=== PATIENT | female | born 1935 | race Caucasian/White ===

== ENCOUNTER 2016-07-27 22:51 | Inpatient (IN) | payer MEDICARE, OTHER ==
[~2016-07-27] VITALS: Ht 160 cm; Wt 64.1 kg
--- NOTE | ~2016-07-27 | CON ---
PATIENT'S NAME: V[facility]E [facility]AR[facility] AGE: 80 Y [address] ROOM: [id number] [place], [place] [address] LOCATION: [facility] ADMIT DATE: 07/27/2016 Consultation DISCHARGE DATE: FAMILY PHYSICIAN: Kate Bruce MD ATTENDING PHYSICIAN: Earnest Avelar Changed to consult per provider 07/29/16 AOREFERRING PHYSICIAN: ANURAG VARELA MD CHIEF COMPLAINT: Left shoulder pain status post mechanical fall. HISTORY OF PRESENT ILLNESS: This is an 80-year-old female who says that she was doing some yard work by pulling weeds and when she finished, she stood up and while walking back home, she stepped over the wire fence and tripped and fell into the door. She denies hitting her head and she denies any loss of consciousness. The fall was purely mechanical. She denies any chest pain, shortness of breath, palpitation, nausea, vomiting, or diaphoresis prior to the fall. She also denies any lightheadedness. She denies any loss of consciousness after the fall. She does complain of severe left shoulder pain after the fall. The patient was later brought to the outside facility for evaluation and imaging test showed that the patient had a left humerus fracture and later transferred here for orthopedic care. At baseline, she is a functional individual. She has dementia but she does answer my question appropriately and is alert and oriented x3 on my interaction. Her METS score is more than 4. She denies any chest pain or shortness of breath at rest. She denies any chest pain on exertion. With prolonged exertion, the patient does complain of dyspnea on exertion. She has never had heart attack before and she has never been told she had an atrial fibrillation or heart failure in the past. The patient also never had a heart surgery in the past either. The patient was a former cigarette smoker for a few years, half pack per day, but she quit more than 15 years ago. She does use oxygen at home at night 1-2 L during sleep. REVIEW OF SYSTEMS: As mentioned in history of present illness. All other systems were reviewed and they were negative except those mentioned in the history of present illness. PAST MEDICAL HISTORY: 1. Dementia. 2. Reported history of CHF. 3. Reported history of a COPD. 4. Gastroesophageal reflux disease. PATIENT'S NAME: [facility] AGE: 80 Y [address] ROOM: [place] [address] LOCATION: [facility] ADMIT DATE: 07/27/2016 Consultation DISCHARGE DATE: FAMILY PHYSICIAN: Kate Bruce MD ATTENDING PHYSICIAN: Earnest Avelar 5. Hypertension. 6. Chronic kidney disease, stage not identified from the medical records that came with the patient. 7. Reported history of sleep apnea. ALLERGIES: ASPIRIN WHICH CAUSES A GI UPSET. HOME MEDICATIONS: It will be reconciled in the morning. The patient does not take any blood thinner at home. SOCIAL HISTORY: The patient was a former cigarette smoker about half pack per day for few years. She quit more than 15 years ago. She denies any alcohol or any illegal drug use. FAMILY HISTORY: Both parents from old age. She denies any coronary artery disease in the family and in either parents. PAST SURGICAL HISTORY: Status post hysterectomy. PHYSICAL EXAMINATION: VITAL SIGNS: Temperature 98.2, heart rate 90, respirations 14, blood pressure 150/80, saturation 99% on room air. GENERAL APPEARANCE: Alert and oriented x3, in no acute distress. HEENT: Pupils equally round and reactive to light. Extraocular muscles intact. Anicteric sclerae. Nasal turbinates are normal bilaterally. Moist oral mucosa. NECK: No JVD. CARDIOVASCULAR: Regular rate and rhythm. Could not appreciate any murmur, rubs, or gallops. Normal S1, S2. RESPIRATORY: Clear to auscultation bilaterally. No rales. No rhonchi. No crackles. No wheezing. ABDOMEN: Soft, nontender, nondistended, normal bowel sounds, no hepatosplenomegaly. Bowel sounds are present. EXTREMITIES: No edema in upper or lower extremities. MUSCULOSKELETAL: Left upper extremity not examined due to the fracture. Otherwise, unremarkable in all other 3 limbs. NEUROLOGICAL: Sensation intact in all 4 extremities. Muscle strength not examined in the left upper extremity due to the fracture. Otherwise, unremarkable. Radial pulses are +2, bilaterally present. PATIENT'S NAME: [facility] AGE: 80 Y [address] ROOM: [place] [address] LOCATION: [facility] ADMIT DATE: 07/27/2016 Consultation DISCHARGE DATE: FAMILY PHYSICIAN: Kate Bruce MD ATTENDING PHYSICIAN: Earnest Avelar LABORATORY DATA: CPK 180, proBNP 344, troponin less than 0.04. White blood cell 10.2, hemoglobin 11.7, hematocrit 38.2, platelet 218. Glucose 118, BUN 18, creatinine 1.2. Sodium 138, potassium 4.8, chloride 107, CO2 20, calcium 8.3. Total protein 7.4, albumin 3.3, AST 27, ALT 25, alkaline phosphatase 74, total bilirubin 0.3, magnesium 2.6. GFR 43, anion gap 15.8. INR 0.95, PTT 23. CK- MB 2.5, prealbumin 24. IMAGING STUDIES: Chest x-ray on admission, the official reading is pending and I had it read by the on-call [facility]. The preliminary report was read as, there is a line overlying the left hemithorax, which likely represent overlying soft tissue artifact rather than a pneumothorax. Recommend a repeat 2-view exam in the Radiology Department. Age indeterminate, displaced proximal left humerus fracture. Mild left lung base atelectasis or consolidation. Small hiatal hernia. EKG on admission on July 28, 2016, at 1:44 a.m. shows sinus tachycardia with heart rate at 101 beats per minute. AZ of 176 milliseconds, QRS of 64 milliseconds, QTc of 381 milliseconds. No acute ischemic changes. X-ray from the outside facility showed left shoulder glenohumeral dislocation with comminuted fracture of the humeral head. ASSESSMENT AND PLAN: 1. Regarding her left shoulder glenohumeral dislocation with comminuted fracture of the humeral head status post mechanical fall: Defer to Orthopedic Surgery care. 2. Regarding her preoperative medical evaluation for noncardiac surgery: Orthopedic surgery is considered as an intermediate risk surgery. From the guideline of the preoperative medical evaluation for noncardiac surgery, the patient does not require any additional testing at the moment to prevent her from going for surgery. However, the patient will require a repeat chest x-ray in the morning again with 2-view to rule out a left side pneumothorax, which probably was likely a soft tissue artifact. Therefore, the patient will be cleared for surgery only if the repeat chest x-ray is normal without pneumothorax. Her METS score is more than 4. She denies any chest pain or shortness of breath on exertion or at rest. She does get some mild exertional dyspnea with prolonged exertion. Currently, the patient does not look volume overloaded. Her blood work looks unremarkable. Cardiac enzymes were negative the first set. Pain control with narcotics p.r.n. N.p.o., IV fluids for gentle hydration. Further plan will depend on clinical course and also on the repeat chest x-ray in the morning. 3. Regarding her obstructive sleep apnea: Given that the patient does PATIENT'S NAME: V[facility]E [facility] AGE: 80 Y [address] ROOM: [id number] [place], [place] [address] LOCATION: [facility] ADMIT DATE: 07/27/2016 Consultation DISCHARGE DATE: FAMILY PHYSICIAN: Kate Bruce MD ATTENDING PHYSICIAN: Earnest Avelar require oxygen at night 2 L for her sleep apnea, after the surgery, there is a risk that the patient may be difficult to extubated and may require a high level of oxygen support. The patient is aware of this condition. Currently, she is saturating well at 96% on room air. 4. Regarding her history of gastroesophageal reflux disease: We will start her on omeprazole 40 mg p.o. daily. 5. Regarding her chronic kidney disease stage III: She is on IV fluids for gentle hydration. GFR is 43. Creatinine is 1.2. This does not prevent her from having the Orthopedic Surgery. 6. Reported history of congestive heart failure: Currently, the patient is euvolemic. ProBNP is normal. Chest x-ray does not show any effusion. There is no murmur on examination. There is no indication to order an echo at the moment. 7. Regarding her hypertension: Currently, she is getting IV labetalol and IV hydralazine p.r.n. Once the medication list is reconciled in the morning, then it can be addressed. 8. Regarding her reported history of chronic obstructive pulmonary disease: Continue 2 L oxygen at night. She is now wheezing. Stable. 9. Regarding her deep vein thrombosis prophylaxis: She is on compression devices. Time spent in care on the day of admission: 45 minutes in total. More than half of the time was spent in counseling, including going over the plan of care and also addressing all the questions and concerns the patient had, and also going over the plan of care with the nurse. The remainder of the total time was spent on chart review and also physical examination and interview. Further plan will depend on clinical course and on the chest x-ray this morning. MD SON PATTERSON/kody /[id number] Changed to consult per provider 07/29/16 AO d: 07/28/16721 t: 08/05/16711, CONSULTATION REPORT
--- NOTE | ~2016-07-27 | DS ---
PATIENT'S NAME: VICENTE MCCARTHY [facility] AGE: 80 Y [address] ROOM: [address] [place], [place] [address] LOCATION: [facility] ADMIT DATE: 07/27/2016 Discharge Summary DISCHARGE DATE: 08/04/2016 FAMILY PHYSICIAN: Kate Bruce MD ATTENDING PHYSICIAN: Earnest Avelar PRIMARY DIAGNOSES: 1. Left humeral fracture. 2. Acute hypoxic respiratory failure. 3. Escherichia coli urinary tract infection. 4. Chronic conditions include essential hypertension and Alzheimer dementia. PRIMARY PROCEDURES: Done for the patient include open reduction and internal fixation and left shoulder reverse arthroplasty by Dr. Avelar. LABORATORY DATA: WBC on admission was 10.2, was stable throughout the hospital stay, prior to discharge was 9.5; H and H on admission 11.7/38.2, prior to discharge hemoglobin was 9.3, was stable throughout the hospital stay. On admission, creatinine was 1.2, prior to discharge was 1.0; potassium on admission was 4.8, prior to discharge was 3.7; bicarb on admission was 20, prior to discharge was 26; BUN was 19 on discharge. Magnesium was also stable throughout the hospital stay. UA: Leukocytes 100, nitrite negative, wbc's 5- 10, bacteria many. Microbiology: Urine culture was E. coli, greater than 100,000. RADIOLOGY: Chest x-ray: Linear edge opacity at left lateral lung, likely skin fold or external artifact rather than pneumothorax. Follow up with 2- view study to confirm left proximal humerus fracture. Chest x-ray, no pneumothorax. HOSPITAL COURSE: For history of present illness, please take a look at the H and P, which was done by the by Dr. Morocho. The patient was admitted to Neurotrauma Unit, had a consult with Dr. Avelar. The patient was medically optimized for surgery; however, surgery was not possible up until July 31. Prior to then, there was difficulty in achieving pain control for the patient given her advanced age and use of narcotic. However, eventually the patient's pain was under control with the addition of Nucynta and sparingly use of narcotics. The procedure was well tolerated by the patient without any intraoperative or postop complications. Postop, the patient's pain was still relatively controlled. The patient was restarted on her regular medications and we did have some difficulty trying to wean the patient off the oxygen. So, she was discharged on oxygen to the swing bed. The patient was very reluctant to do much physical therapy, as she did require a lot of encouragement for her to do any physical therapy at all. Regarding DVT prophylaxis, Dr. Avelar reports that if the patient is ambulatory, then PATIENT'S NAME: VICENTE MCCARTHY [facility] AGE: 80 Y [address] ROOM: [address] [address] LOCATION: [facility] ADMIT DATE: 07/27/2016 Discharge Summary DISCHARGE DATE: 08/04/2016 FAMILY PHYSICIAN: Kate Bruce MD ATTENDING PHYSICIAN: Earnest Avelar really she does not need DVT prophylaxis; however, given the fact that the patient is very reluctant to participate in any physical therapy, we decided to discharge the patient on Lovenox p.r.n. On the day of discharge, vital signs were stable and the patient was discharged to the swing bed. The patient had an asymptomatic urinary tract infection; however, given the significance of a urine culture, we decided to put the patient on Augmentin even though the initial drug of choice was Levaquin; however, because of the interaction with some of her medications, we decided to go for Augmentin. DISCHARGE INSTRUCTIONS: Full weightbearing, dependent on exercise for now. The patient is to have an x-ray at [facility] on August 18, 2016, and also to follow with Dr. Avelar on August 18, 2016. Sling. MEDICATIONS ON DISCHARGE: 1. Mapap 500 mg p.o. daily. 2. Klonopin 0.5 mg q.h.s. at bedtime. 3. Colace 100 mg p.o. twice daily. 4. Augmentin 875 mg p.o. twice daily with meals for a total of 5 days. The patient has 2 more days to complete. 5. Folic acid 0.5 mg p.o. daily. 6. Prilosec 20 mg p.o. daily. 7. Phenazopyridine 25 mg p.o. daily. 8. Trazodone 150 mg p.o. q.h.s. 9. Amitriptyline 75 mg p.o. q.h.s. 10. Nucynta, new medication, 50 mg p.o. 3 times daily. 11. Senokot 1 tablet p.o. twice daily p.r.n. 12. Tylenol Extra Strength 500 to 1 g p.o. q.6 hours p.r.n. 13. Colace 10 mg rectally p.r.n. 14. Milk of magnesia 30 mL p.o. daily p.r.n., new medication. 15. Allyson-Colace tablet 1 tablet p.o. twice daily. 16. MiraLAX 17 g p.o. daily p.r.n. new medication. 17. Aricept 100 mg p.o. daily. 18. Namenda 10 mg p.o. twice daily. 19. Lovenox 40 mg subcu daily p.r.n. if the patient not ambulatory. 20. Dudley 5/325 1-2 tablets every 4 hours p.o. p.r.n. Discharge time spent on this patient is approximately 35 minutes, which included coordinating care with our manager primary care team and also with the accepting physician. MCKINLEY JAIMES MD PATIENT'S NAME: VICENTE MCCARTHY [facility] AGE: 80 Y [address] ROOM: [place] [address] LOCATION: [facility] ADMIT DATE: 07/27/2016 Discharge Summary DISCHARGE DATE: 08/04/2016 FAMILY PHYSICIAN: Kate Bruce MD ATTENDING PHYSICIAN: Earnest Avelar/kody /[id number] d: 08/04/16 0117 t: 08/10/16 1413, DISCHARGE SUMMARY
--- NOTE | ~2016-07-27 | DS ---
PATIENT'S NAME: VICENTE WHITLOCK [facility] AGE: 80 Y [address] ROOM: [address] [address] LOCATION: [facility] ADMIT DATE: 07/27/2016 Discharge Summary DISCHARGE DATE: 08/01/2016 FAMILY PHYSICIAN: Kate Bruce MD ATTENDING PHYSICIAN: Earnest Garcia HISTORY OF PRESENT ILLNESS: Ms. Whitlock had a fall at home. Left shoulder, head splitting, comminuted proximal humeral fracture, not fixable, is also dislocated. Initial concerns whether, with her dementia, she had the insight to benefit from a reverse shoulder arthroplasty. Not a candidate for open reduction and internal fixation. The options were either reverse shoulder or live with it the way it was. She was observed. Decided together with her and her that she had the insight and motivation to benefit from the procedure. She was taken to the operating room on July 31. Left shoulder reverse arthroplasty. No problems. Postop course unremarkable. Ready to discharge to home on the . Regular diet, activity. Avoid falls. She has been taught by the therapist how to do a home pendulum exercise program, which she will do each hour while awake. Change of Mepilex dressing each week. DISCHARGE MEDICINES: 1. Nucynta for pain, transition to Tylenol when possible. 2. Klonopin. 3. Docusate. 4. Aricept. 5. Namenda. 6. Folic acid. 7. Prilosec. 8. Phenazopyridine. 9. Desyrel. 10. Elavil. 11. Allyson-Colace. 12. Ultram. 13. Cranberry. To see her family physician for any medical problems. She will follow up with Dr. Garcia on August 18, 2016, at 1:45 p.m. X-rays have been ordered at the [facility] at 12:45. DIAGNOSIS: Left shoulder fracture. X-rays AP and axillary views, left shoulder. EARNEST GARCIA MD PATIENT'S NAME: VICENTE WHITLOCK [facility] AGE: 80 Y [address] ROOM: [id number] [place], [place] [address] LOCATION: [facility] ADMIT DATE: 07/27/2016 Discharge Summary DISCHARGE DATE: 08/01/2016 FAMILY PHYSICIAN: Kate Bruce MD ATTENDING PHYSICIAN: Earnest Garcia DPM/ivonl /[id number] d: 08/01/16 1858 t: 08/03/16 2152, DISCHARGE SUMMARY
--- NOTE | ~2016-07-27 | OR ---
PATIENT'S NAME: VICENTE WHITLOCK [facility] AGE: 80 Y [address] ROOM: [facility] [place], [place] [address] LOCATION: [facility] ADMIT DATE: 07/27/2016 OR/Procedure Report DISCHARGE DATE: FAMILY PHYSICIAN: Kate Bruce MD ATTENDING PHYSICIAN: Earnest Garcia SURGEON: Earnest Garcia MD MAIL PROCESSING CLERK: DATE OF PROCEDURE: 07/31/2016 DIAGNOSES: Left shoulder head splitting comminuted fracture. PROCEDURE: Left shoulder reverse arthroplasty. ANESTHESIA: General. INDICATION: Ms Whitlock fell at home with a left shoulder head splitting, dislocating comminuted left shoulder fracture, not fixable, medically optimized for surgery. First not considered a candidate for the repair the exercise program with restrictions after arthroplasty, but with repeat evaluation appeared to be have good insight and motivated for result, understands a good result would be not a pain-free shoulder, but her shoulders as likely stiff and sore. Hopefully, we will be able to comb her hair and feed herself. There would be a good result. The alternative given to her was to live with it the way it is. Opted for surgical intervention. Risks, benefits, and alternatives have been discussed. DESCRIPTION OF PROCEDURE: Ms Whitlock was taken to the operating room, 2 g Kefzol given intravenously for prophylaxis. General anesthetic via endotracheal tube. Placed in a captain's chair. Left shoulder and upper extremity prepared with DuraPrep and draped sterilely. A 10 cm deltopectoral exposure was performed. The deltoid was carefully retracted. Retractor placed behind the glenoid. Comminuted proximal humeral and head splitting humeral head fractures identified, rotator cuff was split apart, but there were some bone fragments that were still attached to the supraspinatus and subscapularis. The proximal fragments were carefully removed leaving the bone attached to the rotator cuff. #5 Ethibond sutures were placed through the supraspinatus and subscapularis through the bone and used for retraction. The biceps tendon was released off the top of the glenoid, it was tagged with a 5- 0 Ethibond. The capsule was released from around the glenoid using the Tornier reverse arthroplasty system, guide pin was driven with the guide position on the most inferior edge of the glenoid in a slight inferior tilt. This perforated the anterior cortex at about 30 mm. Serially, it was reamed. Down to cancellous bone. We sized to a 25-mm threaded base plate. This was screwed in place. The four locking screws placed all with good purchase. The humerus was inspected, it was judged for a probable length. Reamer was fully PATIENT'S NAME: VICENTE WHTILOCK [facility] AGE: 80 Y [address] ROOM: [place] [address] LOCATION: [facility] ADMIT DATE: 07/27/2016 OR/Procedure Report DISCHARGE DATE: FAMILY PHYSICIAN: Kate Bruce MD ATTENDING PHYSICIAN: Earnest Garcia advanced, but the 11 mm trial seemed to sit too proud, the 9 mm was a better fit and appeared to be the appropriate length. The canal was prepared, the cement restrictor was placed. It was packed. Cement with Ballico cement with antibiotic was prepared in Tornier 9 mm x 13 mm humeral stem. Cemented in place with approximately 20 degrees of retroversion. This was also the fracture stem and the reservoirs were packed with bone graft from the resected humeral head for hopefully healing of the tuberosities. The 36 mm spherical head was placed on the glenoid, the screw was fully tightened, tapped in place, and then tightened again. Excellent fixation in good position. A trial 36 mm standard insert on the humeral stem was perfect length. There was no shock. There was no impingement. Permanent implant was placed. The wound was irrigated. The tuberosities were repaired with the #5 Ethibond to the bone graft to the area of the stem. Two additional #5 Ethibond had been placed through a drill hole prior to cementing the humeral stem. These were used to make sure the hold the tuberosities down. Biceps tendon was tenodesed with a 5-0 Ethibond. The deltopectoral interval was closed with #1 Vicryl. Subcutaneous tissues closed with 0 Vicryl. Skin was closed with estephanie. Procedure was done without complication. Estimated blood loss from the procedure was 50 mL. Results perfect position of the reverse shoulder arthroplasty and will begin immediate pendulum exercises. EARNEST GARCIA MD DPM/modl /[id number] d: 08/01/16 1156 t: 08/03/16 2149, OPERATIVE SUMMARY
--- NOTE | ~2016-07-27 | HP ---
PATIENT'S NAME: [facility] AGE: 80 Y [address] ROOM: [place] [address] LOCATION: [facility] ADMIT DATE: 07/27/2016 History & Physical DISCHARGE DATE: FAMILY PHYSICIAN: PHYSICIAN, UNKNOWN ATTENDING PHYSICIAN: ANURAG VARELA DATE OF SERVICE: 07/27/2016 EMERGENCY ROOM EVALUATION TIME: 11:30 p.m. HISTORY OF PRESENT ILLNESS: Ms. Whitlock is an 80-year-old white female with dementia, unable to give a detailed history but she does live with her in [facility]. She fell today and injured her left shoulder. Denies any new neck pain or back pain or weakness or numbness, just pain in the left shoulder. She was not having any left shoulder pain prior to this incident. Difficult to sort out how much activity she truly is able to do prior to this, but at least a limited ambulator. MEDICATIONS: See list. ALLERGIES: NONE KNOWN. PAST MEDICAL HISTORY: Osteoporosis, dementia, hypertension, and GERD. REVIEW OF SYSTEMS: As above. FAMILY MEDICAL HISTORY: Says her parents of old age. PERSONAL AND SOCIAL HISTORY: Does not smoke. Does not drink alcohol. Lives with her in [place]. PHYSICAL EXAMINATION: GENERAL: White female, elderly, confused, minimal distress. HEENT: She hears and sees. NECK: Moves fully but Spurling's is positive with some discomfort to the left shoulder. PATIENT'S NAME: [facility] AGE: 80 Y [address] ROOM: [place] [address] LOCATION: [facility] ADMIT DATE: 07/27/2016 History & Physical DISCHARGE DATE: FAMILY PHYSICIAN: PHYSICIAN, UNKNOWN ATTENDING PHYSICIAN: ANURAG VARELA THORACIC SPINE: Nontender. LUMBAR SPINE: Nontender. LEFT SHOULDER: Skin is intact. Not able to lift her arm. Painful motion. HEART: Her pulse rate is regular. LUNGS: No difficulty in taking deep breath. ABDOMEN: Soft and nontender. Distal pulses present. INTEGUMENT: Intact. IMAGING DATA: X-rays taken today show a left shoulder comminuted proximal fractures including a head splitting fracture and dislocation without significant osteoarthritis. ASSESSMENT AND PLAN: The left shoulder head splitting lesion not fixable with open reduction and internal fixation. With her age, consideration could be given to a reverse shoulder replacement as a treatment option. Would only benefit from the reverse shoulder replacement if she was motivated and had insight into doing an exercise program to receive some benefit. I explained to her that a reverse shoulder replacement would most likely be the best treatment, but even in the best situation, results were never normal. Would expect hopefully to achieve some limited function and minimal pain, but would not be normal. We will have the Medical Service evaluate and sort out if a medical candidate and we will also better sort out over the next day whether she would have the insight and motivation to benefit from surgery; otherwise, best just to live with it the way it is. ARVIND GARCIA MD DPM/ivonl /[id number] D: [id number] T: [id number] HISTORY & PHYSICAL
--- NOTE | ~2016-07-27 | ER ---
PATIENT'S NAME: [facility] AGE: 80 Y [address] ROOM: [id number] [place], [place] [address] LOCATION: [facility] ADMIT DATE: 07/27/2016 ER/Outpatient Report DISCHARGE DATE: FAMILY PHYSICIAN: PHYSICIAN, UNKNOWN ATTENDING PHYSICIAN: ANURAG VARELA Time of Arrival: 2251 hours. Time of Exam: 2254 hours. IDENTIFICATION: An 80-year-old female. CHIEF COMPLAINT: Left shoulder fracture. HISTORY OF PRESENT ILLNESS: The patient is an 80-year-old female from [place], [place], who was brought in by ambulance for an orthopedic consultation. The patient fell while gardening today, was evaluated at a local hospital, found to have a shoulder fracture/dislocation, and was referred for the services of Dr. Avelar. The patient did not hit her head, no loss of consciousness. She complains of significant pain in that left shoulder despite pain management. No numbness or tingling and no other problems or concerns. ALLERGIES: ASPIRIN. CURRENT MEDICATIONS: 1. Tylenol 500 mg daily. 2. Amitriptyline 75 mg at h.s. 3. AZO-Gesic 95 mg at h.s. 4. Calcium, magnesium, zinc daily. 5. Folic acid 1 mg daily. 6. Lorazepam 1 mg at h.s. 7. Namzaric 28/10 daily. 8. Omeprazole 20 mg daily. 9. Senokot 8.6 mg b.i.d. 10. Ultram 50 mg q.4 hours p.r.n. pain. MEDICAL PROBLEMS: Alzheimer's, anxiety, depression, gastroesophageal reflux disease, congestive heart failure, hypertension, COPD, osteoporosis, kidney disease, and restless legs syndrome. SURGICAL HISTORY: PATIENT'S NAME: [facility] AGE: 80 Y [address] ROOM: [id number] [place], [place] [address] LOCATION: [facility] ADMIT DATE: 07/27/2016 ER/Outpatient Report DISCHARGE DATE: FAMILY PHYSICIAN: PHYSICIAN, UNKNOWN ATTENDING PHYSICIAN: ANURAG VARELA Unknown. SOCIAL HISTORY: Tobacco use, denies. Alcohol use, denies. Drug use, denies. REVIEW OF SYSTEMS: All systems reviewed and negative other than what is noted in the HPI. PHYSICAL EXAMINATION: VITAL SIGNS: Weight 64.5 kg, blood pressure 189/109, pulse 104, respirations 16, temperature 98.1, and saturations 99% on 2 L per nasal cannula. GENERAL: A pleasant female, in obvious pain. HEENT: Unremarkable. LUNGS: Clear to auscultation. HEART: Regular rate and rhythm. ABDOMEN: Soft, nondistended, nontender. SKIN: [place], warm, and dry. No lesions or rashes noted. NEURO: No focal deficit. Decreased range of motion of the left upper extremity secondary to pain. She has good distal pulses. Sensation is intact. IMAGING: X-ray was reviewed and shows a comminuted fracture of the humeral head with subluxation. IMPRESSION AND PLAN: 1. Left shoulder fracture. Plan per Dr. Avelar who evaluated the patient in the emergency room. 2. Hypertension. Blood pressure improved with pain control to 167/89. DISPOSITION: The patient was admitted per Dr. Avelar. VANESSA OSUNA MD CAR/modl /[id number] d: 07/28/16 0330 t: 07/28/16 0404, OUTPATIENT REPORT
--- NOTE | 2016-07-28 02:00 | NUR ---
Patient admitted post fall while gardening. Tripped over low fencing. From [facility] and transferred [facility] for Dr. LEIA Avelar's services. Humeral head fracture. Hx of Alzheimers, anxiety and had hysterectomy with some cancer surgically removed.
[2016-07-28 02:21] LABS: BASOPHIL % 0.3 %; EOSINOPHIL % 0.3 %; HEMATOCRIT 38.2 % (30.0-46.0); HEMOGLOBIN 11.7 g/dL (10.0-15.0); IMMATURE GRANULOCYTE % 0.3 %; LYMPHOCYTE # 1.5 K/uL (0.8-4.0); MCH 28.8 pg (27.0-34.0); MCHC 30.6 gm/dL (32.0-36.5); MCV 94.1 fl (83.0-98.0); MONOCYTE # 0.9 K/uL (0.0-1.0); MPV 10.6 fl (9.4-12.4); NEUTROPHIL # (ANC) 7.7 K/uL (1.8-7.8); NEUTROPHIL % 75.1 %; NRBC % 0 /100WBC (0-0.00); PLATELET COUNT 218 K/uL (150-450); RDW-CV 14.3 % (11.9-14.6); WBC 10.2 K/uL (4.0-11.0)
[2016-07-28 02:23] LABS: ALBUMIN 3.3 gm/dL (3.5-5.0); ALK PHOS 74 IU/L (33-138); ALT 25 IU/L (12-78); ANION GAP 15.8 (10.0-19.0); AST 27 IU/L (10-40); BLOOD UREA NITROGEN 18 mg/dL (6-24); CALCIUM 8.3 mg/dL (8.5-10.5); CHLORIDE 107 mMol/L (96-110); CO2 20 mMol/L (22-32); CPK 180 IU/L (21-215); CREATININE 1.2 mg/dL (0.5-1.1); ESTIMATED GFR (MDRD EQUATION) 43; MAGNESIUM 2.6 mg/dL (1.8-2.6); POTASSIUM 4.8 mMol/L (3.7-5.1); SODIUM 138 mMol/L (135-145); TOTAL BILIRUBIN 0.3 mg/dL (0.0-1.5); TOTAL PROTEIN 7.4 g/dL (6.0-8.4)
[2016-07-28 02:24] LABS: RBC 4.06 M/uL (3.00-5.00)
[2016-07-28 04:09] LABS: INR - (THERAPEUTIC) 0.95 (0.92-1.07); PTT 23 SECONDS (25-32)
[2016-07-28 13:39] LABS: BILIRUBIN URINE NEGATIVE (NEGATIVE); BLOOD URINE 10 /UL (NEGATIVE); COLOR URINE YELLOW (YELLOW); GLUCOSE URINE NEGATIVE (NEGATIVE); KETONE URINE NEGATIVE (NEGATIVE); LEUKOCYTES URINE 100 /UL (NEGATIVE); NITRITE URINE NEGATIVE (NEGATIVE); PH URINE 6.5 (4.0-8.0); PROTEIN URINE NEGATIVE (NEGATIVE); SPEC GRAVITY URINE 1.015 (1.003-1.035); TURBIDITY URINE 1+ (CLEAR); UROBILINOGEN URINE NORMAL (NORMAL)
[2016-07-28 13:49] LABS: BACTERIA URINE MANY (NEGATIVE); EPITHELIAL URINE RARE #/HPF (NEGATIVE); RBC URINE 0-2 #/HPF (NEGATIVE)
[2016-07-28] MEDS ORDERED: COLACE100 MG PO (15:51)
[2016-07-28] MEDS ORDERED: MAPAP500 M1 PO (15:52)
[2016-07-28] MEDS ORDERED: ULTRAM50 MG PO (15:53)
[2016-07-28] MEDS ORDERED: DESYREL100 MG PO (15:53)
[2016-07-28] MEDS ORDERED: ARICEPT10 MG PO (16:00)
[2016-07-28] MEDS ORDERED: CRANBERRY500 M1 PO (16:01)
[2016-07-28] MEDS ORDERED: DOC-Q-LACE100 MG PO (16:02)
[2016-07-28] MEDS ORDERED: KLONOPIN0.5 MG PO (16:05)
[2016-07-28] MEDS ORDERED: PRILOSEC20 MG PO (16:06)
[2016-07-28] MEDS ORDERED: PHENAZOPYRIDINE95 MG PO (16:07)
[2016-07-28] MEDS ORDERED: ELAVIL75 MG PO (16:08)
[2016-07-28] MEDS ORDERED: NAMENDA10 MG PO (16:09)
[2016-07-28] MEDS ORDERED: FOLIC ACID1 MG PO (16:09)
[2016-07-28] MEDS ORDERED: PERI-COLACE TA1 EACH PO (16:13)
--- NOTE | 2016-07-28 17:45 | NUR ---
Pt alert and oriented. Forgetful. History of dementia. She has had pain this shift but also falls asleep. Rates pain at 10 even when woken up. Had fentanyl x1 and norco x2 but changed to percocet and that seemed to keep her more comfortable. Last given at 1500. She gets up to BSC with one asst. Sling left arm. CSM WNL. Pt voids well. Ice to shoulder. IS use at 1500. HOB elevated at 45 degrees. NPO for OR hopefully tomorrow if parts are available. Was NPO for a while today but Dr Avelar changed to tomorrow. Had chest xray this morning. Spouse at bedside.
--- NOTE | 2016-07-29 04:43 | NUR ---
Significant Event: The Patient is Alert and Oriented x3. Denies Numbness and Tingling. Moves all extremities spontaneously and to command. Left arm weakness due to fractured shoulder. Sling to the left arm and ice for comfort. Midline PIV to the Right upper arm infusing D5NS at 50ml/hr. PIV to the Left hand saline locked. VSS. On 2L while sleeping. Up with 1 assist to the commode. Pain to the left shoulder gave Ultram at 2125, Dilaudid last at 2259, and Percocet last at 0009. NPO Since midnight for OR today. HOB up no more than 45 degrees. Follow up: Surgery at 1330 today
[2016-07-29 05:10] LABS: ANION GAP 11.3 (10.0-19.0); CREATININE 1.1 mg/dL (0.5-1.1); MAGNESIUM 2.3 mg/dL (1.8-2.6); POTASSIUM 4.3 mMol/L (3.7-5.1)
--- NOTE | 2016-07-29 12:22 | NUR ---
Significant Event:PT IS AAOX3. NO C/O NUMBNESS OR TINGLING. CLEAR AND DIMINISHED LUNG SOUNDS. ON 1L NC. ACTIVE BS. NO BM THIS SHIFT. GAVE ZOFRAN EARLY THIS AM FOR NAUSEA. RECIEVING PERCOCET AND DILAUDID FOR PAIN WITH SOME RELIEF NOTED. PLACE PT ON END TITAL MONITOR DUE TO PAIN MED FREQUENCY. PT WILL NOT HAVE SURGERY TODAY. UNSURE OF SURGERY PLAN. UP 1-2 GB. SLING TO LEFT ARM. ICE PACKS ON. IV RUNNING. Follow up:MONITOR PAIN AND RR/SATS
--- NOTE | 2016-07-29 18:03 | NUR ---
Attempted to meet with patient at 1110, but she was sleeping and her was not in the room. Met with patient and at 1600. Introduced myself and explained the role of the CM department. Patient and Dany are very frustrated because she has not had surgery yet. They are not sure why it was cancelled for today, but are not happy that it has been 3 days since she has been here. They live at home in [place]. Noemy is able to ambulate at home and tend to her ADL's, but Dany does most of the housework. Their plan is to return home once discharged. I did mention the possibilty of needing a skilled stay for therapy to get stronger before returning home, but they both thought that Noemy would do fine with out patient therapy at the [facility]. Possibly consider swingbed referral once we know more from her surgery. A CM will continue to follow and assist with discharge plan.
--- NOTE | 2016-07-30 02:05 | NUR ---
Significant Event: A/Ox3. Moves extremities on command without and denies numbness or tingling. Wears sling to left arm and has a pillow for comfort. Administered scheduled Nucynta for pain. 2.5L O2 NC and wears end tital CO2 monitor due to receiving pain medication. D5NS at 50ml/hr through R)midline. Has been NPO since 0000 for possible surgery. Denies nausea. 2A for positioning and bedpan use. Follow up:
[2016-07-30 05:15] LABS: BASOPHIL % 0.3 %; EOSINOPHIL # 0.4 K/uL (0.0-0.5); EOSINOPHIL % 4.8 %; HEMATOCRIT 32.8 % (30.0-46.0); IMMATURE GRANULOCYTE % 0.3 %; LYMPHOCYTE # 1.7 K/uL (0.8-4.0); LYMPHOCYTE % 21.9 %; MCH 29.1 pg (27.0-34.0); MCHC 30.5 gm/dL (32.0-36.5); MCV 95.3 fl (83.0-98.0); MONOCYTE # 0.8 K/uL (0.0-1.0); MONOCYTE % 9.8 %; MPV 9.8 fl (9.4-12.4); NEUTROPHIL % 62.9 %; NRBC % 0 /100WBC (0-0.00); PLATELET COUNT 198 K/uL (150-450); RBC 3.44 M/uL (3.00-5.00); RDW-CV 14.4 % (11.9-14.6)
[2016-07-30 05:32] LABS: ANION GAP 13.4 (10.0-19.0); CALCIUM 8.1 mg/dL (8.5-10.5); CREATININE 0.9 mg/dL (0.5-1.1); MAGNESIUM 2.2 mg/dL (1.8-2.6); POTASSIUM 4.4 mMol/L (3.7-5.1)
--- NOTE | 2016-07-30 13:50 | NUR ---
Significant Event:PT IS AAOX3. CLEAR AND DIMINISHED LUNG SOUNDS. ON 2.5L. WEARS THIS AT HOME. ACTIVE BS. NO BM THIS SHIFT. L) SHOULDER IS BRUISED AND IN SLING. PLAN FOR SURGERY TOMORROW AT 0700. SCHEDULED NUCYNTA CONTROLLING PAIN. RATED 3/10. IV RUNNING. UP TO BSC. Follow up:MONITOR PAIN. ALARMS
--- NOTE | 2016-07-31 04:18 | NUR ---
Significant Event: Patient is alert and oriented x 3. Forgetful. at bedside. Denies numbness or tingling. Pain has been controlled for most of the shift. Percocet given at the beginning of the shift and PRN IVP Dilaudid given after surgical bath. Moves spontaneously and follows commands. PERRL. LUE is weaker than right. LUE is in a sling. LUE edematous and bruised. 2+ pulses. Repositioned Q2H. Voids per bedpan. Urine is orange. IVF infusing at 50 mL/hr with no complications to right upper arm midline. SL to left hand. On 2.5 L O2 via NC per home settings. Lungs clear and diminished. VSS. Afebrile. Bowel sounds active. No BM this shift. Surgery this morning. NPO since midnight. SCDs in place. Follow up: pain management, surgery, NPO
--- NOTE | 2016-07-31 08:37 | NUR ---
PT SCREENED D/T LOS. EST NEEDS: 6301-4458 KCALS, 77 GM PROTEIN, 1 ML/KCAL FLUIDS. PT EATING 50-100%. NO NUTRITION DIAGNOSIS IDENTIFIED. WILL ASSIST NEEDED.
--- NOTE | 2016-07-31 16:54 | NUR ---
Significant Event:PT IS AAOX3. NO C/O NUMBNESS OR TINGLING. RETURN FROM SURGERY AT 1250. NWB LEFT ARM. IN SLING. RECIEVED COUPLE DIFFERENT PAIN MEDS IN PACU. NO NARCOTIC SINCE UP TO FLOOR. ON 3L NC. CLEAR TO CLEAR AND DIMINISHED LUNG SOUNDS. ACTIVE BS. JEFF DRAINING. TO BE REMOVED IN AM. R) MIDLINE RUNNING. LABETOLOL GIVEN AT 1621 FOR TACHYCARDIA IN LOW 100'S AND SBP RANGING FROM 175-200'S. PULSE NOW RUNNING IN 70-80'S SBP IN 150-160'S. Follow up:DR GARCIA STATED HE WOULD POSSIBLY DC TOMORROW.
--- NOTE | 2016-08-01 03:23 | NUR ---
Significant Event:Patient A/O x 3. Denies N/T. LUE in sling, mepilex dressing intact, wiggles fingers. Moves all other extremities spontaneously and to command. Tachycardia with HR is upper 90s, low 100s. HTN with SBPs in 140-150s. Keep SBP <170. Temps- 99.0-99.6 this shift. Lungs clear and dim on 2 L of 02. ETCO2 monitor on. Bowel sounds active. Soliz to be removed this shift. 2 assist for transfers. Midline to RUE running NS AT 50 ml/hr. Ultram given for pain last at 0252 x 1 tab. Follow up: Pain control.
[2016-08-01 05:06] LABS: BASOPHIL % 0.2 %; EOSINOPHIL # 0.1 K/uL (0.0-0.5); EOSINOPHIL % 1.1 %; HEMATOCRIT 26.9 % (30.0-46.0); HEMOGLOBIN 8.3 g/dL (10.0-15.0); IMMATURE GRANULOCYTE # 0.1 K/uL (0.0-0.3); IMMATURE GRANULOCYTE % 0.5 %; LYMPHOCYTE # 1.2 K/uL (0.8-4.0); LYMPHOCYTE % 12.8 %; MCH 29.3 pg (27.0-34.0); MCHC 30.9 gm/dL (32.0-36.5); MCV 95.1 fl (83.0-98.0); MONOCYTE # 1.1 K/uL (0.0-1.0); MONOCYTE % 11.4 %; MPV 11.9 fl (9.4-12.4); NEUTROPHIL # (ANC) 7.1 K/uL (1.8-7.8); NRBC % 0 /100WBC (0-0.00); RBC 2.83 M/uL (3.00-5.00); RDW-CV 14.6 % (11.9-14.6); WBC 9.6 K/uL (4.0-11.0)
[2016-08-01 05:12] LABS: PLATELET COUNT 133 K/uL (150-450)
[2016-08-01 05:17] LABS: BLOOD UREA NITROGEN 10 mg/dL (6-24); CHLORIDE 114 mMol/L (96-110); CO2 21 mMol/L (22-32); CREATININE 0.8 mg/dL (0.5-1.1); ESTIMATED GFR (MDRD EQUATION) > 60; SODIUM 144 mMol/L (135-145)
[2016-08-01 05:21] LABS: ANION GAP 14.5 (10.0-19.0); CALCIUM 7.1 mg/dL (8.5-10.5); POTASSIUM 5.5 mMol/L (3.7-5.1)
--- NOTE | 2016-08-01 14:22 | NUR ---
Introduced self and CM role to Noemy and her . Noemy states that she was living at home and getting along fine before coming into us. We discussed the need for possible short term placement for some therapies before she went home. Both Noemy and her are ok with this plan. She would like for me to look into [facility] as that is near her and that is where her PCP is. I let them know that we would look more towards Thursday for this. Noemy did share with me that she has been in SNFs before and weren't happy with the care that she got there so she really would rather go to a [facility] than a SNF. They were fine with this plan. Explained to her that most likely we would have him transport Noemy on Thursday if she were able to go via personal car. HE was fine with this. Gathered information on Noemy and called/faxed it into [facility], talked with MIKIE Rojas. Crystal states that they should be able to accept Noemy on Thursday, she would just like an update from the weekend on Thursday morning first thing and then we would work on getting her there later morning to early afternoon. Updated to this plan. Also left a note on the front of the chart for Dr. Avelar to see as well. No other questions, needs or concerns. Packet started, orders printed and no ID Screen is needed at this point. CM to continue to follow and assist.
--- NOTE | 2016-08-01 15:23 | NUR ---
Significant Event: Patient A/O x3. Forgetful/confused at times. Denies N/T. Wiggles finger to the left hand. moderate grasp. Warm to the touch. Good cap refill. VSS. Tachycardic. 2L NC with sats in the mid 90s. LS clear and diminshed. Encouraged to use the IS. Temperature is 99.2. EtCO2 monitor in place. Voids per commode/bedpan. IV lasix given this shift. Small BM X2. Mepilex dressing to shoulder with sling. ALFREDA midline infusing with no complications. 2 assist with cane and gaitbelt. Cooeprative with cares. Follow up: pain control?
--- NOTE | 2016-08-02 00:10 | NUR ---
Patient is a 85 y/o female from [place], [place]. [facility], staff reported that patient had a seizure and didn't recognize anyone afterward. While walking back to room she was leaning backwards. Last reported fall was 07/26/16 where the patient slipped out of her chair onto the ground. Patient's son reports he frequently receives call from the half-way that the patient has fallen. Patient was taken to [facility] by ambulance and then flown to [facility]. Arrived to floor at 1910. VSS. Afebrile. Denies N/T, denies headache. Moves all extremities spontaneously and to command. Patient does have a HX of dementia, and CHF. Patient's son reports patient's aortic valve does not open properly, but patient refuses tx. Allergies to PCN.
--- NOTE | 2016-08-02 04:33 | NUR ---
Significant Event: Patient A/O x 3. Forgetful at times. Perrl. LUE c/o "weird" sensation, but denies N/T. Wiggles fingers to LUE, hand grasps. Moves all other extremities spontaneously and to command. On 1L NC. Lungs clear and dim. Spontaneous wet cough. Bowel sounds active. No bm this shift. Tachycardic. Voids per bedpan. Transfers 2 assist. Mepilex to LUE intact, sling intact. Midline to RUE running NS at 50 ml/hr. Tylenol last given at 0238 x 2 tabs. Follow up: [facility] in [facility].
[2016-08-02 04:38] LABS: BASOPHIL % 0.1 %; EOSINOPHIL # 0.2 K/uL (0.0-0.5); EOSINOPHIL % 1.9 %; HEMATOCRIT 22.4 % (30.0-46.0); HEMOGLOBIN 6.9 g/dL (10.0-15.0); IMMATURE GRANULOCYTE % 0.4 %; LYMPHOCYTE # 1.2 K/uL (0.8-4.0); LYMPHOCYTE % 12.6 %; MCHC 30.8 gm/dL (32.0-36.5); MCV 94.1 fl (83.0-98.0); MONOCYTE # 1.2 K/uL (0.0-1.0); MPV 11.3 fl (9.4-12.4); NEUTROPHIL # (ANC) 6.8 K/uL (1.8-7.8); NRBC % 0 /100WBC (0-0.00); PLATELET COUNT 159 K/uL (150-450); RBC 2.38 M/uL (3.00-5.00); RDW-CV 14.6 % (11.9-14.6); WBC 9.4 K/uL (4.0-11.0)
[2016-08-02 04:52] LABS: BLOOD UREA NITROGEN 14 mg/dL (6-24); CHLORIDE 107 mMol/L (96-110); CO2 21 mMol/L (22-32); CREATININE 0.8 mg/dL (0.5-1.1); ESTIMATED GFR (MDRD EQUATION) > 60; MAGNESIUM 1.8 mg/dL (1.8-2.6); SODIUM 140 mMol/L (135-145)
[2016-08-02 04:55] LABS: CALCIUM 6.7 mg/dL (8.5-10.5)
[2016-08-02 13:59] LABS: HEMOGLOBIN 10.3 g/dL (10.0-15.0)
[2016-08-02 14:00] LABS: HEMATOCRIT 32.9 % (30.0-46.0)
[2016-08-03 04:45] LABS: ANION GAP 11.7 (10.0-19.0); CALCIUM 8.1 mg/dL (8.5-10.5); MAGNESIUM 2.1 mg/dL (1.8-2.6); POTASSIUM 3.7 mMol/L (3.7-5.1)
--- NOTE | 2016-08-03 05:03 | NUR ---
Significant Event: Alert/oriented x3. Forgetful and teary eyed at times. Wiggles fingers to LUE. Ice applied. 1L O2 per nasal cannula. No BM this shift. 1 large incontinence of urine while attempting to go to bathroom, brief on. Me[ilex C/D/I. Nucynta at 2110; [place] at 214 and 0123 - effective for pain control. Slept most of night. VSS. Follow up:
--- NOTE | 2016-08-03 17:02 | NUR ---
Significant Event: Pt is alert/forgetful @ times. Needs much encouragement to be up. Amb to BR with gait belt and one assist, does better than this am. But wants to use bedpan. Sling to L) arm. Mepilex dressing c/d/i. O2 1L. Power glide R) upper arm. Ice bag prn. [place] and valium for pain. IV Bumex given @ 1500. Has voided 500 ml since. Wt 65 kg per standing scale. Can be very tearful @ times. Will be going to [facility]. here. Follow up:
--- NOTE | 2016-08-04 00:46 | NUR ---
Significant Event: Patient is alert and oriented x 3. Forgetful. Denies numbness or tingling but does state arm feels weird. LUE in a sling. Edematous. Wiggles fingers and able to grasp with hand. Elevated on pillow. Ice to site. Mepilex to shoulder is C/D/I. 2+ pulses. C/O pain to left shoulder controlled with scheduled Nucynta. Also has PRNs ([place] and Valium). Needs encouragement with activity. 1PA, gait belt, cane. PERRL. Moves spontaneously and follows commands. SR-ST. On 1L O2 via NC. Lungs clear and diminished. Bowel sounds active. No BM this shift. Voids per restroom. Power glide midline to right upper arm SL with no complications. at bedside. Bilateral calf SCDs. Tearful at times--was upset and felt like her was not listening to her. Helped assist in understanding of discharge plans with patient and and patient thankful for this. Follow up: swingbed today, pain management, activity
[2016-08-04 04:43] LABS: ANION GAP 11.8 (10.0-19.0); CALCIUM 8.3 mg/dL (8.5-10.5); MAGNESIUM 2.2 mg/dL (1.8-2.6); POTASSIUM 3.8 mMol/L (3.7-5.1)
--- NOTE | 2016-08-04 04:58 | NUR ---
Significant Event: PERRLA 3mm brisk. AAOx3, forgetful at times. Moves spontaneously and to command. LUE weak hand grasp strength, able to wiggle fingers 2+ pulse 2+ edema, elevated with sling applied and ice pack. Systolic 140's, HR 90-100's, 1+ pedal edema. L.S. clear and diminished in lower lobes, expiratory wheeze present produces 750 at best with I.S. B.S. active, last BM 08/01. Urinates per 2PA pivot GB to bedside commode. R) upper arm mid-line SL'd. Regular diet. gave [place] 10/325 at 0400 for pain 10/10 to L) shoulder; relif noted. Turn Q2h. Mepilex dressing to L) shoulder C/D/I. Follow up: Plan for [facility] today
--- NOTE | 2016-08-04 09:58 | NUR ---
Significant Event: AOx3 but a little forgetful. Up with 1 assist to commode. Sling to L) arm. Mepilex dressing is C/D/I. On room air at %91. Last BM was 08/02. Ice and elevate L) arm. Nucynta and [place] given for pain. Follow up:
--- NOTE | 2016-08-04 13:52 | NUR ---
1025 Called/faxed in an update to Crystal at [facility]. She states that they will accept [place] today. to accept. MD to MD report will need to be done before she can go. I phoned , asked that he call in report before 1400 today as I had an ambulance set up for them. He didn't answer so a VM was left with ' number and I asked that he call if he had any other questions. RN to RN number was given to RN Loulou to call in report before [place] left. Called down to EMS to let them know that we would need an ambulance transfer for 1400 today. Meli in EMS tells me that they will have a crew up here at that time to leaf size picker Noemy and take her to [facility]. Stopped by [facility]' room and updated her and to all of the above, both were in agreement with going to [facility] today and going via ambulance. Dismissal orders were completed and faxed over to [facility] prior to [facility] departure. No other questions, needs or concerns. CM to continue to follow and assist. Plan [facility] today at 1400.
--- NOTE | 2016-08-04 15:37 | NUR ---
Significant Event: AOx3 VSS. CSM WNL. L) hand and forearm has 2+ edema. Iced and elevated. [place] and Nucynta given for pain. Mepilex dressing is C/D/I. Sling intact on L) arm. Patient transferred tp [facility] at 1445 via ambulance. Follow up:
== END 2016-08-04 14:45 | disposition swing bed (61) | DRG 483 ==
LOC: GACC 22:51 → GNTU 23:43
PROVIDERS: Hospitalist; Internal Medicine; ADMIT Orthopaedic Surgery
PROC: 0RRK00Z Replacement of Left Shoulder Joint with Reverse Ball and Socket Synthetic Substitute, Open Approach (ICD-10-PCS; principal; 2016-07-31)
PROC: 30233N1 Transfusion of Nonautologous Red Blood Cells into Peripheral Vein, Percutaneous Approach (ICD-10-PCS; 2016-08-02)
DX: S42.292A Other displaced fracture of upper end of left humerus, initial encounter for closed fracture (principal); J96.01 Acute respiratory failure with hypoxia; I13.0 Hypertensive heart and chronic kidney disease with heart failure and stage 1 through stage 4 chronic kidney disease, or unspecified chronic kidney disease; I50.9 Heart failure, unspecified; N39.0 Urinary tract infection, site not specified; G30.9 Alzheimer's disease, unspecified; F02.80 Dementia in other diseases classified elsewhere, unspecified severity, without behavioral disturbance, psychotic disturbance, mood disturbance, and anxiety; F41.9 Anxiety disorder, unspecified; F32.9 Major depressive disorder, single episode, unspecified; M81.0 Age-related osteoporosis without current pathological fracture; K21.9 Gastro-esophageal reflux disease without esophagitis; J44.9 Chronic obstructive pulmonary disease, unspecified; G25.81 Restless legs syndrome; W01.198A Fall on same level from slipping, tripping and stumbling with subsequent striking against other object, initial encounter; K44.9 Diaphragmatic hernia without obstruction or gangrene; G47.33 Obstructive sleep apnea (adult) (pediatric); N18.3 Chronic kidney disease, stage 3 (moderate); B96.20 Unspecified Escherichia coli [E. coli] as the cause of diseases classified elsewhere; Z87.891 Personal history of nicotine dependence; Y93.H2 Activity, gardening and landscaping
CPT/HCPCS: C1713; C1776; J0690; J1170; J1650; J1940; J2060; J2405; J3010; J7030; J7042; J7050; J7120; P9016; P9045

== ENCOUNTER → 2016-07-27 | Outpatient (CLI) | payer MEDICARE, OTHER ==
[~2016-07-27] MED LIST: ARICEPT10 MG PO; COLACE100 MG PO; CRANBERRY500 M1 PO; DESYREL100 MG PO; DOC-Q-LACE100 MG PO; ELAVIL75 MG PO; FOLIC ACID1 MG PO; KLONOPIN0.5 MG PO; MAPAP500 M1 PO; NAMENDA10 MG PO; PERI-COLACE TA1 EACH PO; PHENAZOPYRIDINE95 MG PO; PRILOSEC20 MG PO; ULTRAM50 MG PO
== END | disposition disaster alternative care site (69) ==
LOC: GAMB 20:25
DX: S42.92XA Fracture of left shoulder girdle, part unspecified, initial encounter for closed fracture (principal); M25.512 Pain in left shoulder; S43.005A Unspecified dislocation of left shoulder joint, initial encounter; S43.015A Anterior dislocation of left humerus, initial encounter; J44.9 Chronic obstructive pulmonary disease, unspecified; I50.9 Heart failure, unspecified; M19.90 Unspecified osteoarthritis, unspecified site; G30.9 Alzheimer's disease, unspecified; F02.80 Dementia in other diseases classified elsewhere, unspecified severity, without behavioral disturbance, psychotic disturbance, mood disturbance, and anxiety; D64.9 Anemia, unspecified; F32.9 Major depressive disorder, single episode, unspecified; K21.9 Gastro-esophageal reflux disease without esophagitis; I12.9 Hypertensive chronic kidney disease with stage 1 through stage 4 chronic kidney disease, or unspecified chronic kidney disease; N18.2 Chronic kidney disease, stage 2 (mild); R20.2 Paresthesia of skin; Z79.891 Long term (current) use of opiate analgesic; Z79.899 Other long term (current) drug therapy; Z88.6 Allergy status to analgesic agent; W01.0XXA Fall on same level from slipping, tripping and stumbling without subsequent striking against object, initial encounter
CPT/HCPCS: A0422; A0425; A0426

== ENCOUNTER → 2016-08-18 | Outpatient (CLI) | payer OTHER, MEDICARE | END | disposition disaster alternative care site (69) | LOC: GRAD 12:20 | DX: S42.92XD Fracture of left shoulder girdle, part unspecified, subsequent encounter for fracture with routine healing (principal); X58.XXXD Exposure to other specified factors, subsequent encounter ==

== ENCOUNTER → 2016-10-20 | Outpatient (CLI) | payer MEDICARE, OTHER | END | disposition disaster alternative care site (69) | LOC: GRAD 12:46 | DX: S42.92XD Fracture of left shoulder girdle, part unspecified, subsequent encounter for fracture with routine healing (principal) ==